=== PATIENT | male | born 1965 ===

== ENCOUNTER 2022-06-30 14:47 | Emergency (ER) | payer BC ==
[2022-06-30] MEDS ORDERED: Sodium Chloride 0.9% 10 ML Syringe FLUSH PRN (14:53)
[2022-06-30] MEDS ORDERED: Sodium Chloride 0.9% 2.5 ML Syringe FLUSH PRN (14:53)
[2022-06-30 15:58] LABS: CORONAVIRUS COVID-19 NAA NEGATIVE (NEGATIVE); INFLUENZA A NAA NEGATIVE (NEGATIVE); INFLUENZA B NAA NEGATIVE (NEGATIVE)
[2022-06-30 16:01] LABS: POTASSIUM,K 3.7 mmol/L (3.5-5.1)
== END 2022-06-30 18:59 | disposition home or self-care (01) ==
LOC: MW.ED 14:47
DX: R07.89 Other chest pain (principal); Z20.822 Contact with and (suspected) exposure to COVID-19
CPT/HCPCS: 0240U; 36415; 71045; 80053; 84443; 84484; 85025; 85379; 93005; 99285; J3490